=== PATIENT | female | born 1975 | race Caucasian/White ===

== ENCOUNTER 2016-12-17 16:38 | Emergency (ER) | payer OTHER ==
[~2016-12-17] VITALS: Ht 165.1 cm; Wt 58.6 kg
[2016-12-17 18:55] VITALS: BP 154/91
== END 2016-12-17 18:56 | disposition home or self-care (01) ==
LOC: EME 16:38
DX: S63.616A Unspecified sprain of right little finger, initial encounter (principal); R20.0 Anesthesia of skin; I73.00 Raynaud's syndrome without gangrene
CPT/HCPCS: 93931; 93971; 99281; 99284

== ENCOUNTER 2016-12-31 22:36 | Emergency (ER) | payer OTHER ==
[~2016-12-31] VITALS: Ht 165.1 cm; Wt 58.5 kg
[2017-01-01 01:04] VITALS: BP 140/90
== END 2017-01-01 01:05 | disposition home or self-care (01) ==
LOC: RME 22:36 → EME 22:36 → RME 01-01 01:05
DX: Z20.3 Contact with and (suspected) exposure to rabies (principal)
CPT/HCPCS: 99281; 99283